=== PATIENT | male | born 1960 | race American Indian/Alaskan Native ===

== ENCOUNTER 2018-05-02 23:19 | Emergency (ER) | payer BC, OTHER ==
[~2018-05-02] VITALS: Ht 177.8 cm; Wt 89.4 kg
[2018-05-03] MEDS ORDERED: GLIPIZIDE XL5 MG PO (00:05)
[2018-05-03] MEDS ORDERED: ROSUVASTATIN CA20 MG (00:05)
[2018-05-03] MEDS ORDERED: ASPIRIN EC81 MG PO (00:05)
[2018-05-03] MEDS ORDERED: METFORMIN HCL1000 M2 PO (00:05)
[2018-05-03] MEDS ORDERED: JANUMET XR 50-1 EAC1 PO (00:06)
[2018-05-03] MEDS ORDERED: NORCO 5-325 TA1 EACH PO (01:55)
== END 2018-05-03 02:40 | disposition home or self-care (01) ==
LOC: ED 23:19
DX: S30.1XXA Contusion of abdominal wall, initial encounter (principal); Z91.19 Patient's noncompliance with other medical treatment and regimen; E11.65 Type 2 diabetes mellitus with hyperglycemia; W01.198A Fall on same level from slipping, tripping and stumbling with subsequent striking against other object, initial encounter; Z79.899 Other long term (current) drug therapy; Z79.82 Long term (current) use of aspirin; Z79.84 Long term (current) use of oral hypoglycemic drugs
CPT/HCPCS: 74177; 80053; 81001; 83690; 85025; 96374; 96375; 99284-25; J1170; J2405; Q9967

== ENCOUNTER 2020-11-02 13:47 | Emergency (ER) | payer BC, OTHER ==
[~2020-11-02] VITALS: Ht 177.8 cm; Wt 89.4 kg
[~2020-11-02 13:47] MED LIST: ASPIRIN EC81 MG PO; GLIPIZIDE XL5 MG PO; JANUMET XR 50-1 EAC1 PO; METFORMIN HCL1000 M2 PO; NORCO 5-325 TA1 EACH PO; ROSUVASTATIN CA20 MG
[2020-11-02] MEDS ORDERED: METFORMIN HCL1000 M2 PO (14:17)
[2020-11-02] MEDS ORDERED: GLIPIZIDE ER10 MG PO (14:17)
--- OUTSIDE RECORDS SUMMARY | 2020-11-02 14:40 | XMS ---
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 Will has no Care Guidelines for this patient. [facility] VISIT COUNT (12 MO.) 1 KYLE Rubalcava TOTAL 1 NOTE: Visits indicate total known visits. ED/C VISIT TRACKING (12 MO.) 11/02/2020 13:48 KYLE Judge [place] TYPE: Emergency COMPLAINT: - PAINFUL THROB L SIDE OF NECK INPATIENT VISIT TRACKING (12 MO.) No inpatient visits to display in this time frame [email or web address]
--- NOTE | 2020-11-05 08:59 | EKG ---
[facility] [address] [facility] [place], [place] [address] Signed Normal sinus rhythm Normal ECG No previous ECGs available Confirmed by PAMELLA JAIN MD ([id number]) on 11/05/2020 8:59:01 AM Electronically Signed By: PAMELLA JAIN MD 11/05/20 0859 PATIENT NAME: FIDE ROSE [place] Electrocardiogram DATE OF : 64 PHYSICIAN: PAMELLA JAIN MD REPORT #: [id number] REPORT IS CONFIDENTIAL AND NOT TO BE RELEASED WITHOUT AUTHORIZATION
== END 2020-11-02 18:30 | disposition home or self-care (01) ==
LOC: ED 13:47
DX: M54.2 Cervicalgia (principal); E11.9 Type 2 diabetes mellitus without complications; Z79.82 Long term (current) use of aspirin; Z79.899 Other long term (current) drug therapy; Z79.84 Long term (current) use of oral hypoglycemic drugs
CPT/HCPCS: 70498; 71045; 80048; 84484; 85025; 93005; 93010; 99284-25; J1100; Q9967; U0003

== ENCOUNTER 2022-05-17 07:34 | Day surgery (SDC) | payer OTHER ==
[~2022-05-17] VITALS: Ht 177.8 cm; Wt 97.1 kg
[~2022-05-17 07:34] MED LIST changes: +B-121000 MC2 PO; +BASAGLAR K100 UNIT/1 SQ; +CIALIS5 MG PO; +D3-5000125 MCG PO; +GABAPENTIN100 MG PO; +GLIPIZIDE ER10 MG PO; +PROTONIX40 M1 PO; +WEGOVY1.7 MG/0.7 SQ; +ZESTRIL2.5 MG PO
[2022-05-17] MEDS ORDERED: OZEMPIC1 MG/0.71 SUB-Q (08:01)
--- NOTE | 2022-05-17 09:17 | NUR ---
05/17/22 0917 Deborah Nava 0913 PATIENT ARRIVES TO PACU RESTING WITH EYES CLOSED. OPENS EYES WITH VERBAL STIMULI. RESP EVEN AND UNLABORED, NC AT 2 LITERS, TURNED OFF ON ARRIVAL TO PAUC.
--- NOTE | 2022-05-18 08:32 | OR ---
[facility] [address] [place], [place] [address] Signed DATE OF OPERATION: 05/17/2022 SURGEON: Jose Maria Abraham MD PREOPERATIVE DIAGNOSES: 1. Screening. 2. Intermittent constipation. POSTOPERATIVE DIAGNOSES: 1. Long redundant colon. 2. Minimal internal hemorrhoids. 3. Poor bowel prep. PROCEDURE: Colonoscopy without biopsy. ESTIMATED BLOOD LOSS: None. INDICATIONS: Cristopher is a 62-year-old gentleman, who was asked to see me for colonoscopy. He underwent upper and lower endoscopy in 2010 at the age of 50 [address] Cano. He had done well with Versed and fentanyl. He has been giving stool sample since that time. At one point, he had Giardia. He treated that with Flagyl and has done well. He told me his brother of pancreatic cancer. His of gallbladder cancer. From a previous CT scan. 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 He will have for he describes intermittent epigastric abdominal pain with acid reflux and also some constipation. He said there is no family history of colon cancer or polyps. He said he is now retired. He said he is doing pretty well except for his back. He was asked to see me for a followup screening colonoscopy. In the office, I gave him a pamphlet on colonoscopy. We had reviewed the nature of the test. There is risk including, but not limited to gas bloating, crampy abdominal pain, bleeding, perforation requiring surgery, and missed diagnosis. We had reviewed the need for IV conscious sedation. He has done well with Versed and fentanyl in the past. We had gone over the written instructions for the bowel prep including recommendations for his medications. For reasons that are not clear, he stopped all his medications six days ago. When he came today, his blood sugar was 386. He told me even with all his medication his blood sugars normally run in the 200s. He said if he gets down around 110 to 120, he is quite dizzy. He was not at all alarmed by his blood sugar of 386. He said it often runs closer to 500. We did encourage him to continue his medications as we discussed on our written instructions Electronically Signed By: JOSE MARIA ABRAHAM MD 05/18/22 0832 PATIENT NAME: CRISTOPHER ROSE OPERATIVE REPORT DATE OF : 64 REPORT #: [id number] PHYSICIAN: JOSE MARIA ABRAHAM MD PCP: [facility] REPORT IS CONFIDENTIAL AND NOT TO BE RELEASED WITHOUT AUTHORIZATION [facility] [address] [place], [place] [address] Signed for the bowel prep. Nevertheless, he was completely asymptomatic and he felt comfortable proceeding. He. PROCEDURE NOTE: Cristopher was taken into our endoscopy suite and placed in the left lateral decubitus position. He was given 4 mg of Versed and 150 mcg of fentanyl to cover the case. A digital rectal exam was performed. He had no external hemorrhoids. He had good sphincter tone. His prostate is indurated and moderately swollen. He did have prominence on the right side. He might review that with his primary care provider. After this, the adult colonoscope was introduced and advanced under direct visualization of the camera. We encountered brown liquid particulate stool matter throughout the colon. There was a couple areas we were sure we were going to get through. Fortunately, we were able to suction out quite a bit of that. We found that he has a very long redundant colon. It took-additional sedation abdominal compression get the scope right up into the cecum itself. There was quite a bit of particulate stool matter around the cecum. We could see the northwestern shoshone's foot. We could see the ileocecal valve. The scope was then slowly withdrawn. We found no pathology throughout the entire colon. Once in the rectum, the scope had been retroflexed and we could see minimal internal hemorrhoid columns. After this, the gas was suctioned out and the colonoscope removed. Overall, Cristopher tolerated the procedure quite well. RECOMMENDATIONS: Cristopher will always need a double bowel prep in the future based on his long redundant colon and his diabetes. He should consider repeat colonoscopy say 1 to 3 years. In the meantime, he is welcome to do stool samples. He should also have his prostate checked by his primary care provider. Jose Maria Abraham MD ALB/MODL /[id number] cc: [facility] Jose Maria Abraham MD Electronically Signed By: JOSE MARIA ABRAHAM MD 05/18/22 0832 PATIENT NAME: CRISTOPHER ROSE OPERATIVE REPORT DATE OF : 64 REPORT #: [id number] PHYSICIAN: JOSE MARIA ABRAHAM MD PCP: [facility] REPORT IS CONFIDENTIAL AND NOT TO BE RELEASED WITHOUT AUTHORIZATION [address] [address] Signed Copies: JOSE MARIA ABRAHAM MD ~ Electronically Signed By: JOSE MARIA ABRAHAM MD 05/18/22 0832 PATIENT NAME: CRISTOPHER ROSE OPERATIVE REPORT DATE OF : 64 REPORT #: [id number] PHYSICIAN: JOSE MARIA ABRAHAM MD PCP: [facility] REPORT IS CONFIDENTIAL AND NOT TO BE RELEASED WITHOUT AUTHORIZATION
== END 2022-05-17 10:00 | disposition home or self-care (01) ==
LOC: OPS 07:34 → DS 07:34 → OPS 10:00
PROVIDERS: ATTEND Colon & Rectal Surgery
PROC: 0DJD8ZZ Inspection of Lower Intestinal Tract, Via Natural or Artificial Opening Endoscopic (ICD-10-PCS; principal; 2022-05-17 07:30)
DX: Z12.11 Encounter for screening for malignant neoplasm of colon (principal); K64.8 Other hemorrhoids; E78.5 Hyperlipidemia, unspecified; E11.9 Type 2 diabetes mellitus without complications; K21.9 Gastro-esophageal reflux disease without esophagitis; E66.8 Other obesity; I10 Essential (primary) hypertension; E78.00 Pure hypercholesterolemia, unspecified; Z68.27 Body mass index [BMI] 27.0-27.9, adult
CPT/HCPCS: 99153; G0500; J2250; J3010; J7121